=== PATIENT | female | born 1970 ===

== ENCOUNTER → 2018-05-10 23:23 | Outpatient (REF) | payer OTHER, SELFPAY ==
[2018-05-11 01:13] LABS: Urine N gonorrhoeae NOT DETECTED
[2018-05-11 01:58] LABS: Urine Chlamydia NOT DETECTED
[2018-05-15 17:23] LABS: RPR Screen Nonreactive (Nonreactive)
== END ==
LOC: LAB 23:23
PROVIDERS: Visit Provider Naturopath
DX: R35.0 Frequency of micturition (principal)
CPT/HCPCS: 36415; 86592; 86702; 86703; 86803; 87491; 87591